=== PATIENT | female | born 1955 | race Native Hawaiian/Other Pacific Islander ===

== ENCOUNTER → 2019-07-18 | Emergency (ER) | payer OTHER ==
[~2019-07-18] VITALS: Ht 160 cm; Wt 96.2 kg
[~2019-07-18] MED LIST: CLOP75TA2 PO; COZAAR25 MG PO; FURO40TA93 PO; KEPPRA1000 MG PO; LAMICTAL150 MG; METOPROLOL25 M1; OMEP20CA PO; POTA20TA4; SIMV40TA57; VENLAFAXINE75 M2 PO
[2019-07-18 12:08] VITALS: TEMP 99.3
[2019-07-18 18:15] VITALS: BP 142/48
== END ==
LOC: ED 12:02
DX: S70.01XA Contusion of right hip, initial encounter (principal); S50.11XA Contusion of right forearm, initial encounter; S60.211A Contusion of right wrist, initial encounter; W18.09XA Striking against other object with subsequent fall, initial encounter; Y92.89 Other specified places as the place of occurrence of the external cause
CPT/HCPCS: 96360; 99284